=== PATIENT | female | born 1955 | race Hispanic/Latino ===

== ENCOUNTER 2020-06-07 06:27 | Observation (INO) | payer OTHER ==
[2020-06-01 12:04] LABS: BASOPHILS % (AUTO) 0.4 % (0.0-5.0); EOSINOPHILS % (AUTO) 3.8 % (0.0-8.0); HEMATOCRIT 38.6 % (36-48); LYMPHOCYTES % (AUTO) 27.3 % (21.0-51.0); MEAN CORPUSCULAR HGB CONC 32.1 g/dL (32.0-36.0); MEAN CORPUSCULAR VOLUME 87.1 fL (79-99); MONOCYTES % (AUTO) 4.7 % (3.0-13.0); NEUTROPHILS % (AUTO) 63.6 % (40.0-77.0); PLATELET COUNT (AUTO) 260 K/uL (130-400); RED BLOOD CELL COUNT(AUTO) 4.43 MIL/uL (4.00-5.50); RED CELL DISTRIBUTION WIDTH 13.1 % (11.0-15.5); WHITE BLOOD COUNT (AUTO) 8.2 K/uL (4.8-10.8)
[2020-06-01 12:08] LABS: APPEARANCE,URINE Clear (CLEAR); BILIRUBIN,URINE Negative (NEGATIVE); COLOR,URINE Yellow (YELLOW); GLUCOSE, URINE (UA) Negative (NEGATIVE); KETONES,URINE Negative (NEGATIVE); LEUKOCYTE ESTERASE ,URINE Negative (NEGATIVE); NITRATE,URINE Negative (NEGATIVE); OCCULT BLOOD,URINE Negative (NEGATIVE); PROTEIN,URINE Negative (NEGATIVE); UROBILINOGEN,URINE 0.2 mg/dL (0.2-1.0)
[2020-06-01 12:22] LABS: INR 0.98 (0.85-1.15); PROTHROMBIN TIME 10.6 SEC (9.6-11.6)
[2020-06-01 12:52] LABS: CREATININE 1.2 mg/dL (0.5-1.5)
--- NOTE | 2020-06-04 09:54 | NUR ---
DR NUNEZ NOTIFIED WITH ABNORMAL LAB RESULTS- NO NEW ORDERS
--- NOTE | 2020-06-04 10:16 | NUR ---
DR NUNEZ INFORMED OF REJECTED MRSA SWAB- WILL REDO ON DAY OF PROCEDURE
[2020-06-04 10:42] VITALS: BP 138/70
[2020-06-07] VITALS (52 sets, daily range): BP systolic 102–176; BP diastolic 44–82
[~2020-06-07] VITALS: Ht 157.5 cm; Wt 154.9 kg
[~2020-06-07 06:27] MED LIST: ALBU2.5V2 IH; ATOR20TA PO; FEXO-23 PO; GABA-529 PO; HYDR-2534 PO; LOSA50TA64 PO; METF-446 PO; [UNRECOGNIZED DRUG - CODE] PO
[2020-06-07] MEDS ORDERED: CEFAZOLIN 3GM /D5W 100ML 100 ML IV PRN (08:00)
[2020-06-07] MEDS ORDERED: CEFAZOLIN SODIUM 1 GM VIAL ONE ×4 (09:00→22:03)
[2020-06-07] MEDS ORDERED: SODIUM CHLORIDE 0.9% 10 ML VIAL ONE (09:01)
[2020-06-07] MEDS ORDERED: SODIUM CHLORIDE 0.9% 1000ML 1,000 ML IV ONE (09:04)
[2020-06-07] MEDS ORDERED: LIDOCAINE PF 2% 5ML ABBOJECT ONE (10:15)
[2020-06-07] MEDS ORDERED: PROPOFOL 10 MG/ML 20ML VIAL IV ONE (10:15)
[2020-06-07] MEDS ORDERED: ONDANSETRON HCL 4 MG/2 ML VIAL ONE (10:16)
[2020-06-07] MEDS ORDERED: GLYCOPYRROLATE 1 MG/5 ML SYRINGE ONE (10:16)
[2020-06-07] MEDS ORDERED: MIDAZOLAM HCL 1 MG/ML 2ML VIAL ONE (10:16)
[2020-06-07] MEDS ORDERED: DEXAMETHASONE SOD PHOSPHATE 10MG/ML 1ML VIAL ONE (10:16)
[2020-06-07] MEDS ORDERED: ROCURONIUM 10MG/1ML SYR 10 MG/ML ML ONE (10:16)
[2020-06-07] MEDS ORDERED: NEOSTIGMINE 5MG/5ML SYR IV ONE (10:16)
[2020-06-07] MEDS ORDERED: FENTANYL CITRATE PF 50 MCG/1 ML 2ML VIAL ONE ×2 (10:17→12:58)
[2020-06-07] MEDS ORDERED: TRANEXAMIC ACID 1000MG/10ML ONE ×2 (11:29→16:17)
[2020-06-07] MEDS ORDERED: SUCCINYLCHOLINE CHLORIDE 20 MG/ML 10 ML VIAL ONE (11:38)
[2020-06-07] MEDS ORDERED: ROPIVACAINE 0.5% 5MG/ML 30ML IJ ONE (15:06)
[2020-06-07] MEDS ORDERED: DURAMORPH PF1 MG/ML 10ML AMP IV ONE (15:07)
[2020-06-07] MEDS ORDERED: KETOROLAC TROMETHAMINE 15MG/ML IV PRN (15:45)
[2020-06-07] MEDS ORDERED: LIDOCAINE HCL-MPF 1% 2ML VIAL IV PRN (15:45)
[2020-06-07] MEDS ORDERED: POTASSIUM CHLORIDE 10% ELIXIR 20 MEQ/15 ML UDCUP PO PRN (15:45)
[2020-06-07] MEDS ORDERED: POTASSIUM CHLORIDE 20 MEQ ERTAB PO PRN (15:45)
[2020-06-07] MEDS ORDERED: FERROUS FUMARATE 324 MG TABLET PO PRN (15:45)
[2020-06-07] MEDS: ACETAMINOPHEN EXTRA STRENGTH 500 MG TABLET PO SCH ×2 (15:45→22:00)
[2020-06-07] MEDS ORDERED: DiphenhydrAMINE HCL 50 MG/ML VIAL IVP PRN (15:45)
[2020-06-07] MEDS ORDERED: ONDANSETRON HCL 4 MG/2 ML VIAL IVP PRN (15:45)
[2020-06-07] MEDS ORDERED: POTASSIUM CHLORIDE 20MEQ/100ML 100 ML IV PRN (15:45)
[2020-06-07] MEDS ORDERED: NALOXONE HCL 0.4 MG/1 ML ML ONE (15:51)
[2020-06-07] MEDS: INSULIN HUMULIN R 100 UNIT/ML 3ML SQ SCH ×2 (16:30→21:00)
[2020-06-07 17:13] LABS: ABG BASE EXCESS -10.5 mmol/L (-2.0-3.0); ABG HCO3 20.4 mmol/L (21.0-28.0); ABG OXYGEN SATURATION 93.7 % (95.0-99.0); ABG PCO2 68 mmHg (32-45)
[2020-06-07] MEDS ORDERED: SODIUM BICARB 50MEQ 50ML VIAL ONE (17:28)
[2020-06-07 17:50] LABS: ABG BASE EXCESS -4.3 mmol/L (-2.0-3.0); ABG HCO3 24.6 mmol/L (21.0-28.0); ABG OXYGEN SATURATION 98.5 % (95.0-99.0); ABG PCO2 61 mmHg (32-45)
[2020-06-07 18:19] LABS: ABG BASE EXCESS -2.8 mmol/L (-2.0-3.0); ABG HCO3 25.6 mmol/L (21.0-28.0); ABG OXYGEN SATURATION 98.7 % (95.0-99.0); ABG PCO2 60 mmHg (32-45)
[2020-06-07] MEDS: SODIUM CHLORIDE 0.9% 1000ML 1,000 ML IV SCH (20:26)
--- NOTE | 2020-06-07 20:35 | NUR ---
PATIENT ARRIVED TO DAY-PT BED A FROM RECOVERY. PT WAS ADMITTED TO ICU POST LEFT TKA D/T HARD TO AROUSE POST SURGERY/ ABNORMAL ABG. LEFT KNEE NOTED WITH JULIET DRESSING WITH FAMILIA WRAP. DISTAL PULSES STRONG AND SENSATION INTACT. PATIENT ON BIPAP 06/04 RATE OF 20 WITH O2 SATURATION AT 100%. PATIENT IS AWAKE, ALERT/ORIENTED. POC DISCUSSED WITH HER. TELEMONITOR SR 82. WILL CONT TO MONITOR CLOSELY. Addendum: 06/07/20 at 2040 by SIENNA ZEPEDA RN RN Amended: Links added.
[2020-06-07] MEDS ORDERED: PREGABALIN 25 MG CAP PO SCH (21:00)
[2020-06-07] MEDS: CEFAZOLIN 3GM /D5W 100ML 100 ML IV SCH (21:00)
[2020-06-07] MEDS: CELECOXIB 200 MG CAP PO SCH (21:00)
[2020-06-07] MEDS ORDERED: [UNRECOGNIZED DRUG - REMARK] PO PRN (21:15)
--- NOTE | 2020-06-07 21:51 | NUR ---
PATIENT TRANSFERRED TO ROOM 415. REPORT GIVEN TO VIMAL TERESA. I CALLED PT'S DAUGHTER, IZABELA AND UPDATED ON TRANSFER.
[2020-06-07] MEDS ORDERED: PHARMACY COMMUNICATION MISC SCH (22:30)
[2020-06-07] MEDS: HYDROMORPHONE HCL 2 MG/ML VIAL IVP PRN (22:58)
[2020-06-08] VITALS (8 sets, daily range): BP systolic 96–127; BP diastolic 50–66
--- NOTE | 2020-06-08 00:03 | NUR ---
Patient feeling very nauseous placed on 3L SATS maintaining 96% will continue to monitor. Addendum: 06/08/20 at 0005 by MARYSE WHITNEY RT Amended: Links added.
[2020-06-08] MEDS: HYDROMORPHONE HCL 2 MG/ML VIAL IVP PRN ×4 (01:04→05:22)
[2020-06-08] MEDS: OXYCODONE HCL 5 MG TAB PO PRN ×3 (02:26→21:22)
[2020-06-08] MEDS: SODIUM CHLORIDE 0.9% 1000ML 1,000 ML IV SCH ×2 (02:26→11:35)
[2020-06-08 04:06] LABS: MEAN CORPUSCULAR HGB CONC 31.9 g/dL (32.0-36.0); MEAN CORPUSCULAR VOLUME 87.9 fL (79-99); RED BLOOD CELL COUNT(AUTO) 3.64 MIL/uL (4.00-5.50); RED CELL DISTRIBUTION WIDTH 13.2 % (11.0-15.5); WHITE BLOOD COUNT (AUTO) 12.6 K/uL (4.8-10.8)
[2020-06-08 04:12] LABS: CREATININE 1.4 mg/dL (0.5-1.5); POTASSIUM 4.8 mmol/L (3.5-5.1)
[2020-06-08] MEDS ORDERED: CEFAZOLIN SODIUM 1 GM VIAL ONE (04:37)
[2020-06-08] MEDS: CEFAZOLIN 3GM /D5W 100ML 100 ML IV SCH (04:44)
[2020-06-08] MEDS: ACETAMINOPHEN EXTRA STRENGTH 500 MG TABLET PO SCH ×3 (05:23→21:17)
[2020-06-08] MEDS: INSULIN HUMULIN R 100 UNIT/ML 3ML SQ SCH ×4 (05:56→21:00)
[2020-06-08] MEDS ORDERED: HYDROMORPHONE PCA 10 MG/50 ML 50 ML IV PRN (06:00)
[2020-06-08] MEDS ORDERED: NALOXONE HCL 0.4 MG/1 ML ML IVP PRN (06:00)
[2020-06-08] MEDS ORDERED: PROMETHAZINE HCL 25 MG/ML 1ML AMPULE IM PRN (06:00)
[2020-06-08] MEDS ORDERED: METOCLOPRAMIDE 10 MG/2 ML VIAL IV PRN (06:00)
[2020-06-08] MEDS: HYDROCHLOROTHIAZIDE 50 MG PO SCH (09:00)
[2020-06-08] MEDS: METFORMIN HCL 1000 MG PO SCH ×2 (09:00→21:00)
[2020-06-08] MEDS: ALBUTEROL SULFATE 0.083% 2.5 MG/3 ML INH IH SCH ×4 (09:00→19:47)
[2020-06-08] MEDS: NABUMETONE 500 MG PO SCH ×2 (09:00→21:00)
[2020-06-08] MEDS: CELECOXIB 200 MG CAP PO SCH ×2 (09:16→21:16)
[2020-06-08] MEDS: POLYETHYLENE GLYCOL 3350 17 GM POWD.PACK PO SCH (09:16)
[2020-06-08] MEDS: GABAPENTIN 100 MG CAPSULE PO SCH ×3 (09:17→21:16)
[2020-06-08] MEDS: APIXABAN 2.5 MG TABLET PO SCH ×2 (09:17→21:16)
[2020-06-08] MEDS: LOSARTAN 50 MG TABLET PO SCH (09:17)
[2020-06-08] MEDS: CALCIUM CARBONATE 500 MG TABLET PO PRN ×2 (09:17→21:15)
--- NOTE | 2020-06-08 12:25 | NUR ---
1357 patient signed DASILVA Letter, I faxed DASILVA Letter to [phone] and placed in chart under consent tab.
--- NOTE | 2020-06-08 16:30 | NUR ---
REFERRAL FOR [facility]- ACCEPTED DME PER LYSSA RIVERA 3 IN ONE Addendum: 06/10/20 at 1110 by [email or web address] GARRETT RN Amended: Links added.
[2020-06-08] MEDS ORDERED: ATORVASTATIN CALCIUM 40 MG TABLET ONE (20:42)
[2020-06-08] MEDS: ATORVASTATIN CALCIUM 10 MG TABLET PO SCH (21:16)
[2020-06-09] VITALS (7 sets, daily range): BP systolic 102–123; BP diastolic 38–61
[2020-06-09] MEDS: OXYCODONE HCL 5 MG TAB PO PRN (04:15)
[2020-06-09 05:05] LABS: ABG OXYGEN SATURATION 71.1 % (95.0-99.0); BASE EXCESS,VENOUS BLOOD GAS 0.7 (-2.0-3.0); HCO3,VENOUS BLOOD GAS 28.1 (21.0-28.0); PCO2,VENOUS BLOOD GAS 56 (32-45); PH,VENOUS BLOOD GAS 7.316 (7.350-7.450)
[2020-06-09 05:34] LABS: BASOPHILS % (AUTO) 0.2 % (0.0-5.0); EOSINOPHILS % (AUTO) 0.9 % (0.0-8.0); HEMATOCRIT 29.6 % (36-48); LYMPHOCYTES % (AUTO) 23.2 % (21.0-51.0); MEAN CORPUSCULAR HEMOGLOBIN 27.7 pg (27.0-33.0); MEAN CORPUSCULAR HGB CONC 31.4 g/dL (32.0-36.0); MEAN CORPUSCULAR VOLUME 88.1 fL (79-99); MONOCYTES % (AUTO) 8.5 % (3.0-13.0); NEUTROPHILS % (AUTO) 66.9 % (40.0-77.0); PLATELET COUNT (AUTO) 202 K/uL (130-400); RED BLOOD CELL COUNT(AUTO) 3.36 MIL/uL (4.00-5.50); RED CELL DISTRIBUTION WIDTH 13.5 % (11.0-15.5); WHITE BLOOD COUNT (AUTO) 9.3 K/uL (4.8-10.8)
[2020-06-09 05:59] LABS: ALBUMIN 2.8 g/dL (3.5-5.0); BILIRUBIN,TOTAL 0.4 mg/dL (0.2-1.0); CREATININE 1.3 mg/dL (0.5-1.5); POTASSIUM 3.9 mmol/L (3.5-5.1); TOTAL PROTEIN, SERUM 6.2 g/dL (6.0-8.3)
[2020-06-09] MEDS: INSULIN HUMULIN R 100 UNIT/ML 3ML SQ SCH ×4 (06:20→21:00)
[2020-06-09] MEDS: ACETAMINOPHEN EXTRA STRENGTH 500 MG TABLET PO SCH ×3 (06:20→22:30)
[2020-06-09] MEDS: HYDROCHLOROTHIAZIDE 50 MG PO SCH (07:14)
[2020-06-09] MEDS: CELECOXIB 200 MG CAP PO SCH ×2 (07:14→22:26)
[2020-06-09] MEDS: NABUMETONE 500 MG PO SCH ×2 (07:14→21:00)
[2020-06-09] MEDS: GABAPENTIN 100 MG CAPSULE PO SCH ×3 (07:14→22:30)
[2020-06-09] MEDS: LOSARTAN 50 MG TABLET PO SCH (07:14)
[2020-06-09] MEDS: APIXABAN 2.5 MG TABLET PO SCH ×2 (07:14→22:26)
[2020-06-09] MEDS: METFORMIN HCL 1000 MG PO SCH ×2 (07:15→21:00)
[2020-06-09] MEDS: POLYETHYLENE GLYCOL 3350 17 GM POWD.PACK PO SCH (07:15)
--- NOTE | 2020-06-09 08:00 | NUR ---
ASSESSMENT PT IS AAOX3 DENIES CP DENIES SOB DENIES NV NO COMPLAINTS RESTING IN BED. LEFT LEG JULIET DRESSING IN PLACE, INTACT, LEFT LEG WRAPPED IN PLACE. AM MEDS GIVEN AND TOLERATED, SITTING UPRIGHT IN BED, EATING BREAKFAST.
[2020-06-09] MEDS: TRAMADOL HCL 50 MG TABLET PO PRN (08:56)
[2020-06-09] MEDS: ALBUTEROL SULFATE 0.083% 2.5 MG/3 ML INH IH SCH ×2 (14:37→22:43)
[2020-06-09] MEDS ORDERED: ATORVASTATIN CALCIUM 40 MG TABLET ONE (20:50)
[2020-06-09] MEDS: ATORVASTATIN CALCIUM 10 MG TABLET PO SCH (22:26)
[2020-06-10 03:46] VITALS: BP 133/71
[2020-06-10 04:09] LABS: BASOPHILS % (AUTO) 0.3 % (0.0-5.0); EOSINOPHILS % (AUTO) 2.6 % (0.0-8.0); HEMATOCRIT 28.7 % (36-48); LYMPHOCYTES % (AUTO) 24.5 % (21.0-51.0); MEAN CORPUSCULAR HEMOGLOBIN 27.6 pg (27.0-33.0); MEAN CORPUSCULAR HGB CONC 31.4 g/dL (32.0-36.0); MONOCYTES % (AUTO) 6.7 % (3.0-13.0); NEUTROPHILS % (AUTO) 65.4 % (40.0-77.0); PLATELET COUNT (AUTO) 209 K/uL (130-400); RED BLOOD CELL COUNT(AUTO) 3.26 MIL/uL (4.00-5.50); RED CELL DISTRIBUTION WIDTH 13.3 % (11.0-15.5); WHITE BLOOD COUNT (AUTO) 9.1 K/uL (4.8-10.8)
[2020-06-10 04:40] LABS: ALBUMIN 2.7 g/dL (3.5-5.0); BILIRUBIN,TOTAL 0.4 mg/dL (0.2-1.0); CREATININE 1.2 mg/dL (0.5-1.5); POTASSIUM 4.1 mmol/L (3.5-5.1); TOTAL PROTEIN, SERUM 6.3 g/dL (6.0-8.3)
[2020-06-10] MEDS: ACETAMINOPHEN EXTRA STRENGTH 500 MG TABLET PO SCH (05:46)
[2020-06-10] MEDS: INSULIN HUMULIN R 100 UNIT/ML 3ML SQ SCH ×2 (05:46→11:30)
[2020-06-10] MEDS: ALBUTEROL SULFATE 0.083% 2.5 MG/3 ML INH IH SCH (06:30)
[2020-06-10 07:56] VITALS: BP 101/55
[2020-06-10] MEDS: NABUMETONE 500 MG PO SCH (08:07)
[2020-06-10] MEDS: METFORMIN HCL 1000 MG PO SCH (08:07)
[2020-06-10] MEDS: HYDROCHLOROTHIAZIDE 50 MG PO SCH (08:07)
[2020-06-10] MEDS ORDERED: APIX2.5T PO (08:08)
[2020-06-10] MEDS ORDERED: OXYC-38 PO (08:08)
[2020-06-10] MEDS: POLYETHYLENE GLYCOL 3350 17 GM POWD.PACK PO SCH (08:10)
[2020-06-10] MEDS: CALCIUM CARBONATE 500 MG TABLET PO PRN (08:11)
[2020-06-10] MEDS: CELECOXIB 200 MG CAP PO SCH (08:11)
[2020-06-10] MEDS: APIXABAN 2.5 MG TABLET PO SCH (08:11)
[2020-06-10] MEDS: GABAPENTIN 100 MG CAPSULE PO SCH (08:11)
[2020-06-10] MEDS ORDERED: FERR324T10 PO (08:28)
--- NOTE | 2020-06-10 11:17 | NUR ---
MET Donna RYAN/Milena AGUILAR--T FOR [facility] LIVES WITH DAUGHTER IZABELA, HAS ROLLING WALKER AND SHOWER BENCH BUT NO POTTY CHAIR- USUALLY IS INDEPENDENT W ADLS, HAS HELP POST OP, ANNI TO DRIVE, VERBAL SELIN FOR JOHN RIDDHI AND REFERRAL SENT Addendum: 06/10/20 at 1119 by [email or web address] GARRETT RN CM Amended: Links added.
[2020-06-10 11:47] VITALS: BP 117/49
[2020-06-10] MEDS: LOSARTAN 50 MG TABLET PO SCH (11:51)
[2020-06-10] MEDS: TRAMADOL HCL 50 MG TABLET PO PRN (11:52)
--- NOTE | 2020-06-10 12:50 | NUR ---
REPORT WAS GIVEN TO JENNIFER FROM [facility] , ORDERS FAXED TO [facility]. PICA DRESSING CHANGED .INCISION PROXIMATED. NO SIGNS OF BLEEDING .DISCHARGE INSTRUCTION PROVIDED TO PATIENT. LET HER KNOW ALSO TO FOLLOW UP WITH DR NUNEZ ON JUL 02 AT 0845 WE[facility] .
[2020-06-10] MEDS ORDERED: BISACODYL 10 MG SUPP.RECT RC PRN (15:45)
== END 2020-06-10 13:30 | disposition home health service (06) ==
LOC: DAH 06:27 → DAHIP 06:28 → DAH 06:28 → DAHIP 15:35 → UNDOADMOB 15:35 → 4CH 21:36
PROVIDERS: ADMIT Orthopaedic Surgery; ATTEND Orthopaedic Surgery
DX: M17.12 Unilateral primary osteoarthritis, left knee (principal); Z20.828 Contact with and (suspected) exposure to other viral communicable diseases; J95.821 Acute postprocedural respiratory failure; E66.2 Morbid (severe) obesity with alveolar hypoventilation; E11.9 Type 2 diabetes mellitus without complications; J45.909 Unspecified asthma, uncomplicated; I10 Essential (primary) hypertension; Z90.710 Acquired absence of both cervix and uterus; Z90.49 Acquired absence of other specified parts of digestive tract; Z79.899 Other long term (current) drug therapy; Z91.14 Patient's other noncompliance with medication regimen
CPT/HCPCS: 27447; 36415 ×4; 36600 ×4; 73562; 80048 ×2; 80053 ×2; 81003; 82803 ×4; 82948 ×13; 85025 ×3; 85027; 85610; 87088; 87641 ×2; 94640 ×7; 94660 ×3; 94664; 96361 ×2; 96374; 96375 ×2; 96376; 97039 ×6; 97116 ×5; 97161; 97530 ×3; A4649 ×3; A4930; A9272; C1776; C9803; G0378 ×19; G8978; G8979; G8980; G8981; G8982; G8983; J0330; J0690 ×7; J1100; J1170 ×6; J1885; J2001; J2250; J2274; J2310; J2405 ×3; J2704; J2710; J2795; J3010 ×2; J3490 ×4; J7030 ×2; J7120; U0003

== ENCOUNTER → 2020-08-03 | Outpatient (CLI) | payer OTHER ==
[~2020-08-03] VITALS: Ht 5.1 cm; Wt 148.8 kg
[~2020-08-03] MED LIST changes: +APIX2.5T PO; +FERR324T10 PO; +OXYC-38 PO; -[UNRECOGNIZED DRUG - CODE] PO
--- NOTE | 2020-08-03 13:00 | NUR ---
INITIAL BARIATRIC NUTRITION CONSULTATION VISIT: DATE: 08/03/20 TIME: [id number] Pt desire to seek Bariatric procedure upon MD recommendation and desire to prevent development of chronic disease or other medical issues. Pt also desires improvement current medical issues of chronic back pain and leg pain. Pt is pre-diabetic and s/p Knee surgery. Pt has attempted at different weight loss methods in the past including diet restriction, pills, and exercise through walking. Pt with recent weight loss post knee surgery with increased walking and elimination of breads and soda products in dietary pattern. Pt has reached a plateau and desires procedure to aid in alleviating mobility issues from pain in leg and back, related to obesity. RD performed 24-hour recall that reveals Pt cooks meals from home majority of the time and eats out for celebrations or weekends. Pt specifies that eating out is not frequent but typically will eat [place] food. Daughter does grocery shopping. Pt does not add salt to foods, drains any oil foods were sauteed in, and only has homemade tortillas occasionally. Pt has recently given up soda products and breads but will have soda once in a while. Pt also reports that sometimes hungry around 9PM and will snack on fruit, however sometimes daughter brings home snacks to try so Pt sampled some white cheddar popcorn, less than a handful, as post dinner snack. Pt also had half of a 12 oz coke that evening. RD provided My Healthy Plate nutrition education with emphasis on fruits and vegetables included in meal planning. Pt currently does not eat breakfast meal, therefore RD emphasized importance healthful and consistent nutritional lifestyle habits. RD commended Pt for cutting unhealthful foods and beverages and encouraged Pt to keep up the good work. RD to provide additional meal planning education upon follow up visit. Pt is motivated to obtain Bariatric procedure in hopes for weight loss to improve health and mobility, decreasing medications, and improved interaction with grandchildren. Pt has support with daughter, whom she lives with. Pt's daughter also with history of Bariatric procedure 5 years ago. Looking forward to follow up visit in one month's time. Addendum: 08/06/20 at [address] RD Amended: Links added.
== END | disposition home or self-care (01) ==
LOC: DTH 11:31
PROVIDERS: ATTEND Surgery
DX: E66.09 Other obesity due to excess calories (principal); E11.9 Type 2 diabetes mellitus without complications
CPT/HCPCS: 97802

== ENCOUNTER 2020-08-16 06:22 | Day surgery (SDC) | payer OTHER ==
[2020-08-16] VITALS (9 sets, daily range): BP systolic 110–135; BP diastolic 46–69
[~2020-08-16] VITALS: Ht 157.5 cm; Wt 147.9 kg
[2020-08-16] MEDS ORDERED: PROPOFOL 10 MG/ML 20ML VIAL IV ONE (07:41)
[2020-08-16] MEDS ORDERED: SUCCINYLCHOLINE 200MG/10ML SYR ONE (07:42)
[2020-08-16] MEDS ORDERED: LIDOCAINE HCL 1% 20 ML VIAL ONE (07:42)
[2020-08-16] MEDS ORDERED: SODIUM CHLORIDE 0.9% 1000ML 1,000 ML IV ONE (07:46)
== END 2020-08-16 09:20 | disposition home or self-care (01) ==
LOC: DAH 06:22 → ENDO 06:22
PROVIDERS: ATTEND Surgery
DX: K21.9 Gastro-esophageal reflux disease without esophagitis (principal); E11.9 Type 2 diabetes mellitus without complications; E66.01 Morbid (severe) obesity due to excess calories; J44.9 Chronic obstructive pulmonary disease, unspecified; I10 Essential (primary) hypertension; Z99.89 Dependence on other enabling machines and devices; G47.30 Sleep apnea, unspecified; Z90.49 Acquired absence of other specified parts of digestive tract; Z90.89 Acquired absence of other organs; Z79.84 Long term (current) use of oral hypoglycemic drugs; Z91.013 Allergy to seafood; Z79.899 Other long term (current) drug therapy; Z20.828 Contact with and (suspected) exposure to other viral communicable diseases
CPT/HCPCS: 43235; 82948; A4215; A4221; A4222; A4223; A4606; A4620; A4657; A4663; C9803; J0330; J2704; J7030; U0003

== ENCOUNTER → 2020-09-01 | Outpatient (CLI) | payer MEDICARE, OTHER ==
[~2020-09-01] MED LIST changes: -APIX2.5T PO; -FERR324T10 PO; -FEXO-23 PO; -OXYC-38 PO
== END | disposition home or self-care (01) ==
LOC: DTH 10:23
PROVIDERS: ATTEND Surgery
DX: E66.09 Other obesity due to excess calories (principal); E11.9 Type 2 diabetes mellitus without complications
CPT/HCPCS: 97803

== ENCOUNTER 2021-03-30 08:57 | Observation (INO) | payer OTHER ==
[2021-03-25 10:36] LABS: BASOPHILS % (AUTO) 0.5 % (0.0-5.0); EOSINOPHILS % (AUTO) 3.6 % (0.0-8.0); HEMATOCRIT 38.6 % (36-48); LYMPHOCYTES % (AUTO) 26.9 % (21.0-51.0); MEAN CORPUSCULAR HEMOGLOBIN 27.4 pg (27.0-33.0); MEAN CORPUSCULAR HGB CONC 31.6 g/dL (32.0-36.0); MEAN CORPUSCULAR VOLUME 86.7 fL (79-99); MONOCYTES % (AUTO) 5.3 % (3.0-13.0); NEUTROPHILS % (AUTO) 63.4 % (40.0-77.0); PLATELET COUNT (AUTO) 279 K/uL (130-400); RED BLOOD CELL COUNT(AUTO) 4.45 MIL/uL (4.00-5.50); WHITE BLOOD COUNT (AUTO) 6.4 K/uL (4.8-10.8)
[2021-03-25 10:38] LABS: APPEARANCE,URINE Cloudy (CLEAR); BILIRUBIN,URINE Negative (NEGATIVE); COLOR,URINE Yellow (YELLOW); GLUCOSE, URINE (UA) Negative (NEGATIVE); KETONES,URINE Negative (NEGATIVE); LEUKOCYTE ESTERASE ,URINE Small (NEGATIVE); NITRATE,URINE Negative (NEGATIVE); OCCULT BLOOD,URINE Negative (NEGATIVE); PH,URINE 5.5 (5.0-8.0); PROTEIN,URINE Negative (NEGATIVE)
[2021-03-25 10:43] LABS: CREATININE 1.4 mg/dL (0.5-1.5); POTASSIUM 4.1 mmol/L (3.5-5.1)
[2021-03-25 10:46] LABS: INR 1.08 (0.85-1.15); PROTHROMBIN TIME 11.7 SEC (9.6-11.6)
[2021-03-25 11:44] LABS: BACTERIA,URINE Moderate /HPF (None Seen)
[2021-03-25 11:45] LABS: RBC,URINE None Seen /HPF (0-1)
[2021-03-25 11:48] LABS: URIC ACID CRYSTALS,URINE Few /LPF (None Seen)
[2021-03-26 16:52] VITALS: BP 112/95
[~2021-03-30] VITALS: Ht 157.5 cm; Wt 120.2 kg
[2021-03-30] VITALS (22 sets, daily range): BP systolic 96–150; BP diastolic 47–64
[~2021-03-30 08:57] MED LIST changes: -ALBU2.5V2 IH; +CEFAZOLIN 3GM /D5W 100ML 100 ML IV ONE; -GABA-529 PO; -HYDR-2534 PO; +LACTATED RINGERS 1000ML 1,000 ML IV ONE; -METF-446 PO
[2021-03-30] MEDS: CEFAZOLIN SODIUM 1 GM VIAL ONE ×2 (09:48→15:00)
[2021-03-30] MEDS ORDERED: MULT-1192 PO (09:50)
[2021-03-30] MEDS ORDERED: DICL20GE TP (09:50)
[2021-03-30] MEDS ORDERED: CELECOXIB 200 MG CAP ONE (12:30)
[2021-03-30] MEDS ORDERED: KETOROLAC 15MG/ML VIAL (15MG/ML) ONE (12:31)
[2021-03-30] MEDS ORDERED: ACETAMINOPHEN 500 MG TABLET ONE (12:31)
[2021-03-30] MEDS ORDERED: TRANEXAMIC ACID 1000MG/10ML ONE ×2 (12:32→12:55)
[2021-03-30] MEDS ORDERED: LIDOCAINE HCL-MPF 1% 5ML AMP IJ ONE (12:50)
[2021-03-30] MEDS ORDERED: SUCCINYLCHOLINE CHLORIDE 20 MG/ML 10 ML VIAL ONE (12:50)
[2021-03-30] MEDS ORDERED: ROCURONIUM 10MG/1ML SYR 10 MG/ML ML ONE (12:50)
[2021-03-30] MEDS ORDERED: MIDAZOLAM HCL 1 MG/ML 2ML VIAL ONE (12:50)
[2021-03-30] MEDS ORDERED: PROPOFOL 10 MG/ML 20ML VIAL IV ONE (12:50)
[2021-03-30] MEDS ORDERED: ROPIVACAINE 0.5% 5MG/ML 30ML IJ ONE (12:53)
[2021-03-30] MEDS ORDERED: 0.9%NACL 10ML VIAL ONE (12:54)
[2021-03-30] MEDS ORDERED: CEFAZOLIN SODIUM 1 GM VIAL ONE (12:54)
[2021-03-30] MEDS ORDERED: GLYCOPYRROLATE 1 MG/5 ML SYRINGE ONE (15:12)
[2021-03-30] MEDS ORDERED: CEFAZOLIN SODIUM 1 GM VIAL IRRIG ONE (16:00)
[2021-03-30] MEDS ORDERED: NEOSTIGMINE 5MG/5ML SYR IV ONE (16:38)
[2021-03-30] MEDS ORDERED: ONDANSETRON 4MG INJ ONE (16:42)
[2021-03-30] MEDS: 0.9%NACL 1000ML 1,000 ML IV SCH (17:00)
[2021-03-30] MEDS ORDERED: CALCIUM CARB 500MG PO PRN (17:00)
[2021-03-30] MEDS ORDERED: KCL 20 MEQ ERTAB PO PRN (17:00)
[2021-03-30] MEDS ORDERED: POTASSIUM CHLORIDE 10% ELIXIR 20 MEQ/15 ML UDCUP PO PRN (17:00)
[2021-03-30] MEDS ORDERED: TRAMADOL HCL 50 MG TABLET PO PRN (17:00)
[2021-03-30] MEDS ORDERED: LIDOCAINE HCL-MPF 1% 2ML VIAL IV PRN (17:00)
[2021-03-30] MEDS ORDERED: FERROUS FUMARATE 324 MG TABLET PO PRN (17:00)
[2021-03-30] MEDS: ACETAMINOPHEN 500 MG TABLET PO SCH ×2 (17:00→20:53)
[2021-03-30] MEDS ORDERED: OXYCODONE HCL 5 MG TAB PO PRN ×2 (17:00)
[2021-03-30] MEDS ORDERED: TEMAZEPAM 15 MG CAPSULE PO PRN (17:00)
[2021-03-30] MEDS ORDERED: POTASSIUM CHLORIDE 20MEQ/100ML 100 ML IV PRN (17:00)
[2021-03-30] MEDS ORDERED: DiphenhydrAMINE HCL 50 MG/ML VIAL IVP PRN (17:00)
[2021-03-30] MEDS ORDERED: MEPERIDINE-PF 25 MG/ML SYG ONE ×2 (17:54→18:09)
[2021-03-30] MEDS ORDERED: METOCLOPRAMIDE 10 MG/2 ML VIAL ONE (18:04)
[2021-03-30] MEDS: ONDANSETRON 4MG INJ IVP PRN ×2 (18:08→23:30)
[2021-03-30] MEDS: KETOROLAC 15MG/ML VIAL (15MG/ML) IV PRN (19:49)
[2021-03-30] MEDS: ASPIRIN 81 MG EC TAB PO SCH (20:53)
[2021-03-30] MEDS: CELECOXIB 200 MG CAP PO SCH (20:53)
[2021-03-30] MEDS: PREGABALIN 25 MG CAP PO SCH (20:56)
[2021-03-30] MEDS: ATORVASTATIN 40 MG TABLET PO SCH (20:56)
[2021-03-30] MEDS: CEFAZOLIN 3GM /D5W 100ML 100 ML IV SCH (22:42)
[2021-03-31] MEDS: 0.9%NACL 1000ML 1,000 ML IV SCH ×2 (03:46→12:50)
[2021-03-31 03:50] VITALS: BP 100/54
[2021-03-31 04:34] LABS: HEMATOCRIT 30.3 % (36-48); MEAN CORPUSCULAR HEMOGLOBIN 27.7 pg (27.0-33.0); MEAN CORPUSCULAR HGB CONC 31.4 g/dL (32.0-36.0); MEAN CORPUSCULAR VOLUME 88.3 fL (79-99); RED BLOOD CELL COUNT(AUTO) 3.43 MIL/uL (4.00-5.50); WHITE BLOOD COUNT (AUTO) 6.5 K/uL (4.8-10.8)
[2021-03-31 04:45] LABS: CREATININE 1.3 mg/dL (0.5-1.5); POTASSIUM 4.9 mmol/L (3.5-5.1)
[2021-03-31] MEDS: CEFAZOLIN 3GM /D5W 100ML 100 ML IV SCH (05:41)
[2021-03-31 08:00] VITALS: BP 129/65
[2021-03-31] MEDS: ASPIRIN 81 MG EC TAB PO SCH ×2 (08:25→20:00)
[2021-03-31] MEDS: CELECOXIB 200 MG CAP PO SCH ×2 (08:25→20:01)
[2021-03-31] MEDS: FAMOTIDINE 20MG TAB PO SCH (08:26)
[2021-03-31] MEDS: POLYETHYLENE GLYCOL 3350 17 GM POWD.PACK PO SCH (08:26)
[2021-03-31] MEDS: ONDANSETRON 4MG INJ IVP PRN (08:26)
[2021-03-31] MEDS: MULTIVITAMIN TABLET PO SCH (08:26)
[2021-03-31] MEDS: PREGABALIN 25 MG CAP PO SCH ×2 (08:26→20:00)
[2021-03-31] MEDS: KETOROLAC 15MG/ML VIAL (15MG/ML) IV PRN (08:27)
[2021-03-31] MEDS: ACETAMINOPHEN 500 MG TABLET PO SCH ×2 (08:36→16:41)
[2021-03-31] MEDS: LOSARTAN 50 MG TABLET PO SCH (09:00)
[2021-03-31 11:58] VITALS: BP 118/49
[2021-03-31 16:00] VITALS: BP 120/49
[2021-03-31] MEDS: ATORVASTATIN 40 MG TABLET PO SCH (20:01)
[2021-03-31 20:04] VITALS: BP 119/50
[2021-04-01 00:04] VITALS: BP 105/57
[2021-04-01] MEDS: ACETAMINOPHEN 500 MG TABLET PO SCH ×2 (00:04→10:10)
[2021-04-01 04:04] VITALS: BP 111/59
[2021-04-01 07:55] VITALS: BP 130/60
[2021-04-01] MEDS: PREGABALIN 25 MG CAP PO SCH (10:09)
[2021-04-01] MEDS: ASPIRIN 81 MG EC TAB PO SCH (10:10)
[2021-04-01] MEDS: CELECOXIB 200 MG CAP PO SCH (10:10)
[2021-04-01] MEDS: MULTIVITAMIN TABLET PO SCH (10:10)
[2021-04-01] MEDS: LOSARTAN 50 MG TABLET PO SCH (10:10)
[2021-04-01] MEDS: FAMOTIDINE 20MG TAB PO SCH (10:11)
[2021-04-01] MEDS: POLYETHYLENE GLYCOL 3350 17 GM POWD.PACK PO SCH (10:11)
[2021-04-01 11:02] VITALS: BP 113/45
[2021-04-01] MEDS ORDERED: NITR100C4 PO (12:57)
[2021-04-01] MEDS ORDERED: TRAM50TA4 PO (12:57)
[2021-04-01] MEDS ORDERED: AEC81 PO (12:57)
[2021-04-02] MEDS ORDERED: BISACODYL 10 MG SUPP.RECT RC PRN (17:00)
== END 2021-04-01 15:25 | disposition home health service (06) ==
LOC: DAH 08:57 → DAHIP 08:58 → 4AH 18:30
PROVIDERS: ADMIT Orthopaedic Surgery; ATTEND Orthopaedic Surgery
DX: M17.11 Unilateral primary osteoarthritis, right knee (principal); I10 Essential (primary) hypertension; D64.9 Anemia, unspecified; N39.0 Urinary tract infection, site not specified; B96.20 Unspecified Escherichia coli [E. coli] as the cause of diseases classified elsewhere; Z90.710 Acquired absence of both cervix and uterus; Z98.84 Bariatric surgery status
CPT/HCPCS: 27447; 36415 ×2; 80048 ×2; 81001; 85025; 85027; 85610; 87077; 87088; 87186; 87635; 87641; 93005; 96365; 96366; 96375; 96376 ×2; 97039 ×4; 97116 ×4; 97161; 97530 ×2; A4221; A4222; A4223; A4649 ×3; A4663; A4930 ×3; A5120; A9272; C1776; C9803; G0378 ×44; G8978; G8979; G8980; G8981; G8982; G8983; J0330; J0690 ×4; J1885 ×3; J2175 ×2; J2250; J2405 ×4; J2704; J2710; J2765; J2795; J3490 ×4; J7030; J7120 ×2

== ENCOUNTER → 2022-01-14 | Outpatient (CLI) | payer OTHER ==
[~2022-01-14] MED LIST changes: +AEC81 PO; -CEFAZOLIN 3GM /D5W 100ML 100 ML IV ONE; -LACTATED RINGERS 1000ML 1,000 ML IV ONE; +MULT-1192 PO; +NITR100C4 PO; +TRAM50TA4 PO
== END | disposition home or self-care (01) ==
LOC: RAH 10:14
PROVIDERS: ATTEND Family Medicine
DX: Z12.31 Encounter for screening mammogram for malignant neoplasm of breast (principal); R92.1 Mammographic calcification found on diagnostic imaging of breast
CPT/HCPCS: 77067

== ENCOUNTER → 2023-01-17 | Outpatient (CLI) | payer OTHER | END | disposition home or self-care (01) | LOC: RAH 09:33 | PROVIDERS: ATTEND Family Medicine | DX: Z12.31 Encounter for screening mammogram for malignant neoplasm of breast (principal) | CPT/HCPCS: 77067 ==

== ENCOUNTER → 2023-09-25 | Outpatient (CLI) | payer OTHER ==
[~2023-09-25] MED LIST changes: +IOHEXOL-350 50ML VIAL IV ONE
== END | disposition home or self-care (01) ==
LOC: RAH 10:35
PROVIDERS: ATTEND Family Medicine
DX: J44.9 Chronic obstructive pulmonary disease, unspecified (principal); K44.9 Diaphragmatic hernia without obstruction or gangrene; Z90.49 Acquired absence of other specified parts of digestive tract; R93.89 Abnormal findings on diagnostic imaging of other specified body structures; M47.815 Spondylosis without myelopathy or radiculopathy, thoracolumbar region; K76.0 Fatty (change of) liver, not elsewhere classified; I25.10 Atherosclerotic heart disease of native coronary artery without angina pectoris
CPT/HCPCS: 71270; Q9967

== ENCOUNTER → 2024-06-18 | Outpatient (CLI) | payer OTHER ==
[~2024-06-18] MED LIST changes: -IOHEXOL-350 50ML VIAL IV ONE
== END | disposition home or self-care (01) ==
LOC: RAH 12:39
PROVIDERS: ATTEND Family Medicine
DX: Z12.31 Encounter for screening mammogram for malignant neoplasm of breast (principal); R92.323 Mammographic fibroglandular density, bilateral breasts; R92.1 Mammographic calcification found on diagnostic imaging of breast
CPT/HCPCS: 77067

== ENCOUNTER → 2025-01-19 | Outpatient (CLI) | payer OTHER ==
--- NOTE | 2025-01-20 09:18 | HMCIMG ---
PROCEDURE: MAMMO DX UNILATERAL LEFT, US BREAST COMPLETE UNILATERAL HISTORY: Left breast lump COMPARISON: None TECHNIQUE: Left breast digital diagnostic mammogram with CAD was performed. No additional views were obtained. Left breast ultrasound study was performed. There was placed over the region of interest. FINDINGS: The breasts are heterogeneously dense, which may obscure small masses. Over the region of interest where marker was placed, no mass lesion is seen. There is no evidence of a dominant mass, or suspicious microcalcification. There is no evidence of nipple retraction or skin thickening. Left breast ultrasound shows no evidence of cystic or hypoechoic mass. There are left axillary lymph nodes with the largest measuring 16 x 5 x 16 mm. IMPRESSION: 1. Stable mammogram. No cystic or hypoechoic mass is seen of left breast. BI-RADS: CATEGORY 2: BENIGN FINDINGS Recommend monthly self breast exam as well as annual clinical examination. A negative x-ray should not delay biopsy if a dominant or clinically suspicious mass is present, since 8-10% of cancers are not identified by mammography. Dense breasts particularly, may obscure an underlying neoplasm. Some of these may be detected clinically and therefore, clinical examination is an essential part of breast evaluation.
== END | disposition home or self-care (01) ==
LOC: RAH 13:27
PROVIDERS: ATTEND Physician Assistant
DX: R92.332 Mammographic heterogeneous density, left breast (principal); N63.20 Unspecified lump in the left breast, unspecified quadrant; N63.0 Unspecified lump in unspecified breast
CPT/HCPCS: 76641; 77065